=== PATIENT | male | born 1990 ===

== ENCOUNTER 2018-08-21 09:50 | Emergency (ER) | payer OTHER ==
[~2018-08-21] VITALS: Ht 175.3 cm; Wt 68.0 kg
== END 2018-08-21 11:57 | disposition home or self-care (01) ==
LOC: ER 09:50
DX: R60.0 Localized edema (principal); S63.63 Sprain of interphalangeal joint of other and unspecified finger(s); X50.0XXS Overexertion from strenuous movement or load, sequela